=== PATIENT | male | born 1945 | race Caucasian/White ===

== ENCOUNTER 2016-08-23 10:21 | Inpatient (IN) ==
--- NOTE | 2016-08-23 10:48 | Emergency Department Note ---
Disposition Clinical Impression: Weakness of right lower extremity Disposition: Admitted As Inpatient Condition: Fair Time of Disposition: 13:39 Neuro HPI - General Chief Complaint: ED Weakness Stated Complaint: weakness Time Seen by Provider: 08/23/16 10:34 Source: patient, EMS Limitations: no limitations Nursing Notes Reviewed: Yes Vital Signs Reviewed: Yes - History of Present Illness HPI Narrative: 71-year-old male presents to the emergency department from the [place] urgent care for evaluation of right lower extremity weakness. Patient states yesterday at approximately 16:30 the patient was rising from a seated position when he almost fell secondary to weakness of the right lower extremity. Patient states he has no back pain or prior history of CVA. Patient states that it felt like his right lower extremity was weak and "asleep". Patient states that his symptoms did not get better and today he went to the [place] for evaluation. He denies any saddle anesthesia. He denies any bowel or bladder incontinence. He denies any chest pain or shortness of breath. He denies any nausea or vomiting. Patient states that he does have a history of prior back surgery but has no metal in his spine. Patient denies any pain in lower extremity and has no radicular symptoms. Exam is remarkable for an elderly male resting in bed in no acute distress. He is awake, alert and oriented. Cranial nerves II through XII are grossly intact. Patient has equal strength and sensation in his upper extremities. In the lower extremities strength is decreased on the right however , he is able to hold the leg off the bed but it does drift to the bed but after 5 seconds. He has no sensory deficit noted. There is no signs of trauma. Exam is otherwise nonfocal. Reviewed patient's CT results from the [place] which shows no acute intracranial abnormality. Lab work is also unremarkable. EKG and MRI of the spine ordered. Onset of Symptoms Date: 08/22/16 Onset of Symptoms Time: 16:30 Location: right leg History of same: No Severity: moderate Quality: weakness Symptoms Improving: No Improves with: none Worsens with: none Context: sudden onset On Anticoagulants: Yes Associated symptoms: Reports: denies other symptoms Treatments Prior to Arrival: none - Related Data Home Medications: Home Medications Medication Instructions Recorded Confirmed GlipiZIDE [Glipizide] 10 mg PO BIDWM 03/14/16 08/23/16 Metformin HCl [Glucophage] 1,000 mg PO BID 03/14/16 08/23/16 Rivaroxaban [Xarelto] 10 mg PO DAILY 03/14/16 08/23/16 Diltiazem HCl [Cardizem] 240 mg PO DAILY 06/17/16 08/23/16 Previous Rx's Medication Instructions Recorded Metoprolol XL (24 HR) Succ [Toprol 25 mg PO DAILY #30 tab.er.24h 03/18/16 Xl] Allergies/Adverse Reactions: Allergies Allergy/AdvReac Type Severity Reaction Status Date / Time No Known Allergies Allergy Verified 03/14/16 18:19 All systems ED: reviewed and negative except as stated. Constitutional: Denies: fever Cardiovascular: Denies: chest pain, palpitations Respiratory: Denies: cough, dyspnea Gastrointestinal: Reports: diarrhea. Denies: abdominal pain, nausea, vomiting Genitourinary: Denies: dysuria Musculoskeletal: Denies: back pain, neck pain Neurological: Reports: weakness Past Medical History - Past Medical History Medical history: Reports: diabetes, hyperlipidemia Psychiatric history: Reports: no psych history - Social History Smoking Status: Former smoker Smokeless Tobacco Status: No Alcohol use: Reports: none Drug use: Reports: none Physical Exam - General Limitations: no limitations General appearance: alert - Head Head exam: atraumatic, normocephalic, normal inspection - Eye Eye exam: Present: normal appearance, PERRL, EOMI - Chest Chest inspection: Present: normal inspection, symmetric chest wall rise - Respiratory Respiratory exam: Present: normal lung sounds bilaterally - Cardiovascular Cardiovascular exam: Present: regular rate, normal rhythm, normal heart sounds - Abdominal Exam Abdominal exam: Present: soft, Non-Tender. Absent: tenderness, distention, guarding, rebound, rigidity - Back Exam Back exam: Present: normal inspection. Absent: tenderness - Neurological Exam Neurological exam: Present: alert, oriented X3, CN II-XII intact, motor sensory deficit (Noticeable weakness to the right lower extremity when compared to left lower extremity. 3 out of 5 strength compared to 5 out of 5 strength) - Skin Skin exam: Present: warm, dry, intact, normal color Course - Reevaluation(s) Reevaluation #1: Discussed findings with patient. MRI shows chronic degenerative changes but no signs of acute herniation or mass effect that would cause the patient's symptoms. Plan will be to admit patient to the hospital for further evaluation of his right lower extremity weakness with concerns for CVA. Time: 13:42 Vital Signs Temperature 98.7 F 08/23/16 10:25 Pulse Rate 68 08/23/16 10:25 Respiratory Rate 16 08/23/16 10:25 Blood Pressure 139/105 08/23/16 10:25 O2 Sat by Pulse Oximetry 99 08/23/16 10:25 Temperature 0 F L 08/23/16 14:31 Pulse Rate 87 08/23/16 11:08 Respiratory Rate 0 08/23/16 14:31 Blood Pressure 0/0 08/23/16 14:31 O2 Sat by Pulse Oximetry 98 08/23/16 11:08 Oxygen Delivery Oxygen Delivery Room Air Neuro Symptoms/Deficit - MDM Narrative Medical decision making narrative: I examined this patient and my medical decision-making was reviewed with the RAIL OPERATOR/PA/Advanced Practice Nurse/Resident Physician. I agree with the documented findings, disposition and treatment plan as described except to the extent set forth below. Patient was seen at the [facility] and transferred here. On arrival he was seen by Dr. Olson and myself, please see his evaluation, I agree with his management and treatment plan. I supervised care patient state. Patient has had 24 hours or right lower extremity weakness. He says sudden onset. No back pain. No change in bowel or bladder habits. Had knee surgery in the side of years ago but nothing acute. Also back surgery years ago but nothing acute. He does have weakness with hip flexors with lifting the leg when he ambulates, he does have foot drop on that side. No other neuro deficits. And again an MRI of his spine and reassessed. He is in agreement with plan. Lumbar Spine MRI 08/23/16 10:43 IMPRESSION: Moderate diffuse degenerative disc disease with associated mild congenital spinal canal stenosis. Small central disc protrusion at L3-L4. Mild central canal stenosis at L2-L3 and L3-L4. Severe bilateral foraminal stenosis at L5-S1. D/ : / 08/23/2016 13:02:34 Ulises Handley MD / catarino Interpreting Provider: Ulises Handley MD 1408 hrs.: We do not see much on his MRI that would cause the symptoms so the question could be could this still be a stroke type pattern. [facility] and bring him into the hospital this time he will need further workup. Possible substance agreement with this plan. Patient's in agreement also. Patient's critical care time x-ray separately billable procedures is 45 minutes. - Medical Records Medical records reviewed: Yes I reviewed the patient's medical records. - Lab Data Lab results reviewed: Yes I reviewed the patient's lab results. - Radiology Data Radiology results reviewed: Yes I reviewed the patient's radiology results. - EKG Data EKG attestation: Yes I reviewed and interpreted this EKG. Rate: normal Rhythm: A. flutter Interpretation: no acute changes NIH Stroke Scale - Level of Consciousness LOC: Alert - LOC Questions LOC Questions: Answers both correctly - LOC Commands LOC Commands: Performs both correctly - Best Gaze Best Gaze: Normal - Visual Visual: No visual loss - Facial Palsy Facial Palsy: Normal - Motor Arms Motor Arm-Left: No drift for 10 seconds Motor Arm-Right: No drift for 10 seconds - Motor Legs Motor Leg-Left: No drift for 5 seconds Motor Leg-Right: Drift, does NOT hit bed - Limb Ataxia Limb Ataxia: Normal, No Ataxia - Sensory Sensory: Normal - Best Language Best Language: No aphasia - Dysarthria Dysarthria: Normal - Extinction and Inattention Extinction and Inattention: Normal - NIHSS Total Score NIHSS Total Score: 1
[2016-08-23] MEDS ORDERED: *HR* HYDROcodone/Acet 5/325 mg TABLET PO PRN (17:10)
[2016-08-23] MEDS ORDERED: MOM Conc 10 ML UD.LIQ PO PRN (17:10)
[2016-08-23] MEDS ORDERED: Ondansetron 4 MG/2 ML VIAL IVP PRN (17:10)
[2016-08-23] MEDS ORDERED: Acetaminophen 325 MG TABLET PO PRN (17:10)
[2016-08-23] MEDS ORDERED: Naloxone 0.4 MG/ML INJ IVP PRN (17:10)
[2016-08-23] MEDS ORDERED: *HR* Dextrose 50 % in Water (Syg) 50 ML SYRINGE IVP PRN (17:13)
[2016-08-23] MEDS ORDERED: Dextrose Gel 15 GM PO PRN ×2 (17:13)
[2016-08-23] MEDS ORDERED: D5% in Water 1,000 ML IV PRN (17:13)
[2016-08-23] MEDS ORDERED: *HR* Metoprolol 5 MG/5 ML VIAL IVP ONE (17:30)
--- NOTE | 2016-08-23 18:15 | Internal Med History&Physical ---
<Sury Lam - Last Filed: 08/24/16 07:32> Date of Encounter: 08/24/16 Time of Encounter: 16:55 Assessment and Plan (1) CVA (cerebral vascular accident) Current visit: Yes Status: Acute Pt has had improvement since initial assessment. Pt has been up to amb and appears to be steady, but maintains that his leg feels "funny". Infarct most likely from embolus due to a-fib/flutter and is located in the posterior L frontal lobe near the L MCA. MRI also shows older infarct that pt apparently had no symptoms and was unaware. Pt had bedside swallow at [facility] and has eaten already, so speech and swallow have been cancelled. Asa 81mg po daily Continue Xarelto and other home medications Lipitor 40mg po qhs ECHO Consult Neurology Qualifiers: CVA mechanism: embolism Precerebral and cerebral artery: middle cerebral artery Laterality of affected vessel: left Qualified Code(s): I63.412 - Cerebral infarction due to embolism of left middle cerebral artery (2) Diabetes mellitus Current visit: No Status: Chronic Glucose 174mg/dL per Chemistry. Last A1c in February 8.5%. Nutrition and sliding scale insulin Diabetic Diet A1c Monitor labs Qualifiers: Diabetes mellitus type: type 2 Diabetes mellitus complication status: with unspecified complications Diabetes mellitus chcf insulin use: without chcf use Qualified Code(s): E11.8 - Type 2 diabetes mellitus with unspecified complications (3) Atrial flutter Current visit: Yes Status: Acute Pt has previous history of a-fib and a-fib RVR. Currently pt is in a-flutter. Pt denies cp, sob, or palpitations. Rate 130s on bedside monitor Continue Xarelto 10mg po daily Echo in a.m. Metoprolol 5mg IVP x 1 for rate control Continue Diltiazem po Qualifiers: Atrial flutter type: unspecified Qualified Code(s): I48.92 - Unspecified atrial flutter Internal Medicine - H&P: HPI Chief complaint: RLE weakness Admitted From: Home Plans for Post Hospital Care: Transfer Inp Rehab Fac History of present illness: Mr. Shi is a 71 year old male with history of a-fib and DM who presents today for 1 day history of RLE weakness. Pt states that yesterday at approx 1630 he attempted to stand and felt like his leg was weak. He was not better today, so he went to the [place] for eval and was then sent to our ED for evaluation. Pt states that he missed one dose of Xarelto 2 days ago. Denies any other symptoms other than RLE weakness. Pt does have very slight droop at corner of R mouth and not able to hold R leg against gravity. Pt has already eaten today and had a bedside swallow at the [place] prior to coming here. Dr. Lara and I have assessed this pt and have ordered him a regular diet tonight. Pt has not had trouble with his speech since onset of symptoms and speech has been clear. Past Med Surg Social Fam HX - Past Medical History Medical history: diabetes, hyperlipidemia Psychiatric history: no psych history - Social History Smoking Status: Former smoker Smokeless Tobacco Status: No Alcohol use: none Drug use: none - Family History Mother Living Status: Brother Living Status: Father Living Status: Internal Medicine - H&P: Meds GlipiZIDE [Glipizide] 10 mg PO BIDWM 03/14/16 [History] Metformin HCl [Glucophage] 1,000 mg PO BID 03/14/16 [History] Rivaroxaban [Xarelto] 10 mg PO DAILY 03/14/16 [History] Metoprolol XL (24 HR) Succ [Toprol Xl] 25 mg PO DAILY #30 tab.er.24h 03/18/16 [ Rx] Diltiazem HCl [Cardizem] 240 mg PO DAILY 06/17/16 [History] Allergies No Known Allergies Allergy (Verified 03/14/16 18:19) All Systems PM: A 10-system review of systems was performed and is negative for pertinent findings except as documented above in the HPI. - Constitutional Constitutional: weakness, no chills, no fever(s), no falls - EENT Eyes: no loss of vision, no other visual disturbances - Cardiovascular Cardiovascular ROS IM: no chest pain, no dyspnea, no dyspnea on exertion, no syncope - Respiratory Respiratory: no cough, no wheezing, no chest congestion - Gastrointestinal Gastrointestinal: no diarrhea, no nausea, no vomiting - Musculoskeletal Musculoskeletal ROS IM: muscle weakness, numbness - Neurological Neurological ROS: abnormal gait, numbness, weakness, no paresthesias - Constitutional Vitals: Temp Pulse Resp BP Pulse Ox 97.8 F 126 16 120/88 97 08/23/16 15:00 08/23/16 15:00 08/23/16 15:00 08/23/16 15:00 08/23/16 15:34 General appearance: Present: cooperative, A&O X 3, pleasant, no acute distress - Head Head exam: Present: normocephalic - Eye Eye exam: Present: PERRL, conjuntiva pink. Absent: EOMI, nystagmus - ENT ENT exam: Present: mucous membranes moist - Neck Neck exam general surgery: Present: full ROM. Absent: lymphadenopathy, tenderness - Respiratory Respiratory exam: Present: CTAB. Absent: accessory muscle use, chest wall tenderness, decreased breath sounds, rales, rhonchi, wheezes - Cardiovascular Cardiovascular exam: Present: RRR, +S1, +S2. Absent: distant heart sounds - GI/Abdominal GI/Abdominal exam: Present: distended, normal bowel sounds, soft. Absent: tenderness - Expanded Upper Extremities Exam General: Present: normal inspection Vascular exam: Present: pedal pulse right, pedal pulse left, radial pulse right , radial pulse left - Neurological Exam Neurological exam: Present: CN II-XII intact, oriented X3, facial droop. Absent : pronater drift, speech deficit - Expanded Neurological Exam Neurological exam expanded: Present: protecting the airway. Absent: ataxia, expressive aphasia, inattentive Cranial Nerves: tongue deviation PM: Normal Cerebellar function: finger to nose: Normal, heel to banuelos: Abnormal Right Neuro motor strength exam: LUE: 5, RUE: 5, LLE: 5, RLE: 5 (Pt has no deficit in strength. Pt cannot lift leg from bed without it dropping in less than 5 seconds ) Internal Med - H&P Results - Labs CBC & Chem 7: 08/24/16 04:33 08/24/16 04:33 - Impressions ITS Impressions Brain MRI 08/23/16 14:20 IMPRESSION: Small acute infarction in the posterior left frontal lobe, in the left MCA territory. Small old infarction in the right cerebellar hemisphere. Mild parenchymal volume loss. Minimal chronic microvascular disease. No acute abnormality of the MRA of the head and MRA of the neck. The results were called by Dr. Marshall Card MD to nurse Ms. Muniz on 08/23/2016 at 16:22. D/ / Marshall Card MD / Marshall Card MD Interpreting Provider: Marshall Card MD Head MRA 08/23/16 14:20 IMPRESSION: Small acute infarction in the posterior left frontal lobe, in the left MCA territory. Small old infarction in the right cerebellar hemisphere. Mild parenchymal volume loss. Minimal chronic microvascular disease. No acute abnormality of the MRA of the head and MRA of the neck. The results were called by Dr. Marshall Card MD to nurse Ms. Muniz on 08/23/2016 at 16:22. D/ / Marshall Card MD / Marshall Card MD Interpreting Provider: Marshall Card MD Neck MRA 08/23/16 14:20 IMPRESSION: Small acute infarction in the posterior left frontal lobe, in the left MCA territory. Small old infarction in the right cerebellar hemisphere. Mild parenchymal volume loss. Minimal chronic microvascular disease. No acute abnormality of the MRA of the head and MRA of the neck. The results were called by Dr. Marshall Card MD to nurse Ms. Muniz on 08/23/2016 at 16:22. D/ / Marshall Card MD / Marshall Card MD Interpreting Provider: Marshall Card MD <Karlos Guerrero - Last Filed: 08/24/16 07:50> Date of Encounter: 08/24/16 Internal Medicine - H&P: HPI History of present illness: Mr. Shi is a 71 year old male All Systems PM: A 10-system review of systems was performed and is negative for pertinent findings except as documented above in the HPI. - Constitutional Vitals: Temp Pulse Resp BP Pulse Ox 97.8 F 137 14 121/83 97 08/24/16 06:35 08/24/16 06:35 08/24/16 06:35 08/24/16 06:35 08/24/16 06:35 Internal Med - H&P Results - Labs CBC & Chem 7: 08/24/16 04:33 08/24/16 04:33 Labs: Short CBC 08/23/16 08/24/16 Range/Units 18:27 04:33 WBC 9.1 8.5 (4.3-11.1) K/mcL Hgb 15.9 15.1 (12.9-16.9) g/dL Hct 46.6 45.8 (37.5-50.1) % Plt Count 190 187 (140-400) K/mcL Neutrophils # 4.7 4.5 (1.6-8.9) K/mcL BMP 08/23/16 08/24/16 18:27 04:33 Sodium 141 140 Potassium 4.3 4.2 Chloride 106 107 Carbon Dioxide 22 21 BUN 14 15 Creatinine 0.82 0.89 Glucose 118 H 156 H Calcium 9.7 9.2 - Impressions ITS Impressions Brain MRI 08/23/16 14:20 IMPRESSION: Small acute infarction in the posterior left frontal lobe, in the left MCA territory. Small old infarction in the right cerebellar hemisphere. Mild parenchymal volume loss. Minimal chronic microvascular disease. No acute abnormality of the MRA of the head and MRA of the neck. The results were called by Dr. Marshall Card MD to nurse Ms. Muniz on 08/23/2016 at 16:22. D/ / Marshall Card MD / Marshall Card MD Interpreting Provider: Marshall Card MD Head MRA 08/23/16 14:20 IMPRESSION: Small acute infarction in the posterior left frontal lobe, in the left MCA territory. Small old infarction in the right cerebellar hemisphere. Mild parenchymal volume loss. Minimal chronic microvascular disease. No acute abnormality of the MRA of the head and MRA of the neck. The results were called by Dr. Marshall Card MD to nurse Ms. Muniz on 08/23/2016 at 16:22. D/ / Marshall Card MD / Marshall Card MD Interpreting Provider: Marshall Card MD Neck MRA 08/23/16 14:20 IMPRESSION: Small acute infarction in the posterior left frontal lobe, in the left MCA territory. Small old infarction in the right cerebellar hemisphere. Mild parenchymal volume loss. Minimal chronic microvascular disease. No acute abnormality of the MRA of the head and MRA of the neck. The results were called by Dr. Marshall Card MD to nurse Ms. Muniz on 08/23/2016 at 16:22. D/ / Marshall Card MD / Marshall Card MD Interpreting Provider: Marshall Card MD - Attending Attestation I discussed the care of this patient with the Advanced Practice Provider. I agree with the documented findings, disposition and treatment plan as described. Please see event note documented by Dr Lara on 08/23/2016.
--- NOTE | 2016-08-23 18:22 | Event Note ---
Date of Encounter: 08/23/16 Time of Encounter: 18:10 I have seen this patient and examined him. Plan of care discussed with patient, family members and [employer] Genaro 71 Y/O M with Type II DM, and Atrial flutter/fibrillation on Xarelto Patient presented with >24 hours of RLE weakness, numbness and left facial droop He reports having missed "a couple" of his Xarelto doses At time of review, he had no complains Physical Exam: VS: HR 125-133. BP WNL Gen: Pleasant, not in any form of distress Neuro exam: Left subtle facial paralysis, no speech deficits, Gait is normal but slow, no ataxia on standing, no hemineglect. Patient's strength in upper extremities is 5/5, his RLE is about 4/5. No sensation deficits HEENT: Moist oral mucosa Chest: CTAB heart: S1, S2, tachycardia, irregular Abdomen: Flat, soft, not tender Extremities: No pedal edema Labs and Imaging reviewed No labs obtained Bran MRI/MRA< Neck MRA: No foacl stenosis. Artherosclerotic disease at the left bifurcation without flow-limiting stenosis. Small chronic cerebellar infarct, small acute left MCA territory infarct Lumbar MRI: Moderate DJD, mild congenital spinal canal stenosis Assessment/Plan 1. Acute Ischemic Left MCA CVA: -Patient already on xarelto, continue same -will obtain PT/PTT, CBC, Comprehensive panel, Lipid panel and A1C -Start ASA 325mg daily -Lipitor 40mg qhs -Obtain ECHO, r/o thrombus -PT/OT review a.m -Patient tolerated his lunch, he may be fed -Fall precautions -High risk due to possible hemorrhagic conversion on dual antiplatelet therapy -Consult neurology 2. Atrial flutter by EKG, with RVR -Give IV lopressor, monitor BP -Restart oral home meds -Continue continuous cardiac monitoring 3. DM -Check A1C -Sliding scale insulin -FS ACHS -Diabetic diet Rest of details as documented in [employer] [facility]'s H/P
[2016-08-23 18:37] LABS: Basophils # 0.1 K/mcL (0.0-0.2); Basophils % 0.6 %; Eosinophils # 0.2 K/mcL (0.0-0.6); Eosinophils % 1.9 %; Hematocrit 46.6 % (37.5-50.1); Hemoglobin 15.9 g/dL (12.9-16.9); Immature Granulocytes % 0.4 % (0-4); Lymphocytes # 3.4 K/mcL (0.6-4.6); Lymphocytes % 37.4 %; Mean Corpuscular HGB Conc 34.1 g/dL (31.6-35.5); Mean Corpuscular Hemoglobin 31.2 pg (28.0-33.3); Mean Corpuscular Volume 91.4 fL (83.0-100.0); Monocytes # 0.7 K/mcL (0.0-1.3); Monocytes % 7.5 %; Neutrophils # 4.7 K/mcL (1.6-8.9); Platelet Count 190 K/mcL (140-400); Segmented Neutrophils % 52.2 %
[2016-08-23 18:43] LABS: INR 1.7; Prothrombin Time 18.4 Seconds (9.4-12.1)
[2016-08-23 18:51] LABS: BUN/Creatinine Ratio 17 (6-26); Blood Urea Nitrogen 14 mg/dL (8-26); Calcium 9.7 mg/dL (8.6-10.8); Carbon Dioxide 22 mEq/L (19-29); Chloride 106 mEq/L (98-109); Glucose 118 mg/dL (70-99); Osmolality,Calculated 294 (280-300); Potassium 4.3 mEq/L (3.5-4.5); Sodium 141 mEq/L (136-145); eGFR For African Americans > 60 (> 60); eGFR For Non-African Americans > 60 (> 60)
[2016-08-23 18:52] LABS: Chol/HDL Ratio 6.2 (0-4.9)
[2016-08-23] MEDS: Insulin LISPRO 300 UNITS/3 ML VIAL SQ SCH (21:19)
[2016-08-23] MEDS ORDERED: *HR* Metoprolol 5 MG/5 ML VIAL IVP PRN (23:16)
[2016-08-24] MEDS ORDERED: 0.9 % Sodium Chloride 1,000 ML ONE (01:30)
[2016-08-24] MEDS ORDERED: 0.9 % Sodium Chloride 300 ML IVC ONE (01:32)
[2016-08-24] MEDS: *HR* Digoxin 0.5 MG/2 ML AMPUL IVP SCH ×3 (04:22→18:14)
[2016-08-24 05:18] LABS: Basophils # 0.1 K/mcL (0.0-0.2); Basophils % 0.7 %; Eosinophils # 0.2 K/mcL (0.0-0.6); Hematocrit 45.8 % (37.5-50.1); Hemoglobin 15.1 g/dL (12.9-16.9); Immature Granulocytes % 0.7 % (0-4); Lymphocytes # 3.1 K/mcL (0.6-4.6); Lymphocytes % 36.1 %; Mean Corpuscular Hemoglobin 30.1 pg (28.0-33.3); Mean Corpuscular Volume 91.4 fL (83.0-100.0); Mean Platelet Volume 11.4 fL (9.4-12.4); Monocytes # 0.7 K/mcL (0.0-1.3); Neutrophils # 4.5 K/mcL (1.6-8.9); Platelet Count 187 K/mcL (140-400); Red Blood Count 5.01 M/mcL (4.19-5.50); Red Cell Distribution Width 13.1 % (11.5-14.5); Segmented Neutrophils % 52.5 %
[2016-08-24 05:28] LABS: BUN/Creatinine Ratio 17 (6-26); Blood Urea Nitrogen 15 mg/dL (8-26); Calcium 9.2 mg/dL (8.6-10.8); Carbon Dioxide 21 mEq/L (19-29); Chloride 107 mEq/L (98-109); Glucose 156 mg/dL (70-99); Osmolality,Calculated 294 (280-300); Potassium 4.2 mEq/L (3.5-4.5); Sodium 140 mEq/L (136-145); eGFR For African Americans > 60 (> 60); eGFR For Non-African Americans > 60 (> 60)
[2016-08-24] MEDS ORDERED: *HR* Rivaroxaban 10 MG TABLET PO SCH (06:00)
--- NOTE | 2016-08-24 08:04 | Event Note ---
Date of Encounter: 08/24/16 Time of Encounter: 01:30 Pt remained tachycardic / A flutter with RVR (HR ~ 130), after he received IV metoprolol last night. Given diltiazem IV 5 mg and 10 mg - no response. IV fluid bolus did not improve heart rate. Discussed with fire officer on-call - who recommends Digoxin loadin.25 mg Q6H 3 doses. Cardiology consult. Pt is awaiting echo.
[2016-08-24] MEDS: Diltiazem CD (24hr) 240 MG CAPSULE PO SCH (08:49)
[2016-08-24] MEDS: Aspirin 325 MG TABLET PO SCH (08:49)
[2016-08-24] MEDS: Insulin LISPRO 300 UNITS/3 ML VIAL SQ SCH ×7 (08:52→20:11)
[2016-08-24] MEDS ORDERED: Metoprolol XL (24 HR) Succ 25 MG TAB.ER.24H PO SCH (09:00)
--- NOTE | 2016-08-24 11:22 | Cardiology Consult Note ---
Date of Encounter: 08/24/16 Time of Encounter: 11:20 Assessment and Plan (1) Atrial fibrillation with RVR Current Visit: No Status: Acute Atrial flutter with RVR. Heart rate 130s on admission. Patient was given IV Cardizem bolus without response. He was recommended to be started on digoxin IV loading. Heart rate 90s to 113 during my exam. Increase beta bushra as tolerated. Recommended Xarelto doses 20 mg daily. Patient was on a low dose xarelto started at [facility]. Recently instructed to increase to 20 mg daily. reports patient had 1-2 doses of the 20 mg prior to admission. TTE pending. (2) CVA (cerebral vascular accident) Current Visit: Yes Status: Acute Acute infarct in the posterior L frontal lobe near the L MCA. Recommend Xarelto at 20 mg daily. Nephrology consulted. Qualifiers: CVA mechanism: embolism Precerebral and cerebral artery: middle cerebral artery Laterality of affected vessel: left Qualified Code(s): I63.412 - Cerebral infarction due to embolism of left middle cerebral artery Discussion w patient/family: The assessment and plan as outlined above was discussed with the patient and/or family members who expressed understanding and agreement. All questions were answered. Thank you for involving us in the care of your patient. Please call with any questions. History of Present Illness Consult date: 08/24/16 Requesting physician: Melecio Pederson Consult reason: Afib with RVR, acute CVA History of present illness: Mr. Shi is a 71 year old male with a history of atrial flutter on Xarelto, diabetes, hyperlipidemia, and presumed TY. He presented after loosing function of his right leg and falling at home. He was found to have a small acute left frontal lobe infarct on MRI. He is also found to be in atrial flutter with RVR. Patient was on Xarelto 10 mg daily at home. He was instructed recently to increase to a 20 mg a day dose and just started taking the increased dose. He admits to occasional palpitations. Denies chest pain or shortness of breath. His right lower extremity weakness has improved. Neurology is consult for acute CVA. For his afib he was given 15 mg IV Cardizem without a response in his heart rate. He was then started on digoxin IV loading. Past Med Surg Social Fam HX - Past Medical History Medical history: diabetes, hyperlipidemia Psychiatric history: no psych history - Past Surgical History Surgical History: appendectomy - Social History Smoking Status: Former smoker Smokeless Tobacco Status: No Alcohol use: none Drug use: none - Family History Mother Living Status: Brother Living Status: Father Living Status: Medications and Allergies GlipiZIDE [Glipizide] 10 mg PO BIDWM 03/14/16 [History] Metformin HCl [Glucophage] 1,000 mg PO BID 03/14/16 [History] Rivaroxaban [Xarelto] 10 mg PO DAILY 03/14/16 [History] Metoprolol XL (24 HR) Succ [Toprol Xl] 25 mg PO DAILY #30 tab.er.24h 03/18/16 [ Rx] Diltiazem HCl [Cardizem] 240 mg PO DAILY 06/17/16 [History] Allergies No Known Allergies Allergy (Verified 03/14/16 18:19) All Systems Review: A 10-system review of systems was performed and is negative for pertinent findings except as documented above in the HPI. Physical Examination Vital Signs, Last 4 Hours Temp Pulse Resp BP Pulse Ox 08/24/16 10:37 98.3 F 139 15 108/74 96 General: Conversant, No Apparent Distress HEENT: Atraumatic, Normocephaly, Mucus Membranes Moist Neck: No JVD, Normal carotid pulses Cardiac: Other (Irregularly irregular) Lungs: Other (Respirations are easy, faint expiratory wheezes throughout.) Neuro: Alert and responsive, No focal deficits noted Abdomen: Soft, Non-Tender Skin: No rashes noted on visualized skin Musculoskeletal: No Chest Wall Tenderness Extremities: No Clubbing, No Cyanosis, No Edema, Normal Pulses Results 08/24/16 04:33 08/24/16 04:33 Lab Results 08/23/16 08/23/16 08/23/16 18:27 18:27 18:27 WBC 9.1 Hgb 15.9 Hct 46.6 Plt Count 190 INR 1.7 Sodium 141 Potassium 4.3 Chloride 106 Carbon Dioxide 22 BUN 14 Creatinine 0.82 Glucose 118 H Calcium 9.7 08/24/16 08/24/16 04:33 04:33 WBC 8.5 Hgb 15.1 Hct 45.8 Plt Count 187 INR Sodium 140 Potassium 4.2 Chloride 107 Carbon Dioxide 21 BUN 15 Creatinine 0.89 Glucose 156 H Calcium 9.2 - Imaging and Cardiology Echo: pending, report reviewed (Previous echo completed at the [facility] in February 2016 showed an EF of 45%.) Cardiac cath: report reviewed ([facility] on 06/17/2016 showed minimal CAD) - EKG Interpretation EKG results cardiology: personally reviewed (Atrial flutter heart rate 131) Consult Discharge Plan - Plan [facility]errals: [facility] [Primary Care Provider] -
--- NOTE | 2016-08-24 11:23 | ECHO - Doppler Report ---
Echo with Saline Contrast Name: Dorothea Shi Date of Study: 08/24/2016 Date: 1945 Ht: 68.0 in Medical Record#: [id number] Age: 71 Wt: 210.0 lb Gender: Male BSA: 2.09 Order #: [id number] Location: [facility] Room #: 2NE16 Reading Physician: Sudarshan Styles MD, [facility] Jelly Maker: Laury Arora Ordering Physician: Rusty Lara MD Primary Physician: [facility] Indications: Atrial flutter with CVA Impressions: Atrial flutter vs atrial tachycardia with RVR. Heart rate was in the 130's during this study. Low-normal to mildly decreased LV systolic dysfunction, LVEF 45-50%. LV function was suboptimally assessed due to rapid heart rate during this study. Indeterminate diastolic function. Normal right ventricular size and function. Moderately dilated left atrium. Moderately dilated right atrium. Mild mitral regurgitation. No evidence of pulmonary hypertension. Left Ventricular Wall Motion: Rest Echo Findings All wall segments showed normal motion. Findings: Study Quality * Suboptimal echo windows. ECG Findings * Atrial flutter vs atrial tachycardia with RVR. Heart rate was in the 130's during this study. Left Ventricle * Low-normal to mildly decreased LV systolic dysfunction, LVEF 45-50%. LV function was suboptimally assessed due to rapid heart rate during this study. * Normal LV chamber size and wall thickness. * Indeterminate diastolic function. Right Ventricle * Normal right ventricular size and function. Left Atrium * Moderately dilated left atrium. Right Atrium * Moderately dilated right atrium. Aorta * Normally sized aortic root. Pericardium * There is no pericardial effusion present. IVC * The IVC is not well evaluated. Aortic Valve * Trileaflet aortic valve. * No aortic stenosis. * Trace aortic regurgitation. Mitral Valve * Mild mitral annular calcification * No mitral stenosis. * Mild mitral regurgitation. Tricuspid Valve * Normal tricuspid valve structure. * No tricuspid stenosis. * Trace tricuspid regurgitation. * No evidence of pulmonary hypertension. Pulmonic Valve * Pulmonic valve not well visualized. * No pulmonic stenosis. * Trace pulmonic regurgitation. History Diabetes Hypercholesteremia Years 20 Packs 2 Family History of CAD Contrast: Agitated saline 20 ml. Measurements: BP: 121/ 83 2D Normal Values RVIDd: 3.00 cm IVSd: 1.00 cm 0.6 - 1.0 cm LVIDd: 4.20 cm 3.7 - 5.6 cm LVPWd: 1.00 cm 0.6 - 1.1 cm LVIDs: 3.10 cm 1.5 - 3.6 cm AO: 3.50 cm < 4.0 cm %FS: 26.20 cm >25 % LA volume: 86 Tricuspid Valve TV Regurg Peak Grad: 21.00mmHg TV Regurg Peak Watson: 2.27m/sec Updated by Sudarshan Styles MD, [facility] on 08/24/2016 11:17:52 AM electronically signed on 08/24/2016 11:18:38 AM with status of Final Wall Motion Ojeda: 1=Normal, 2=Hypokinesis, 3=Akinesis, 4=Dyskinesis, 5=Aneurysmal, 6=Hyperkinetic, X=Not Visualized (Blank)=Missing
[2016-08-24] MEDS ORDERED: *HR* Rivaroxaban 10 MG TABLET PO ONE (12:07)
[2016-08-24] MEDS ORDERED: Metoprolol XL (24 HR) Succ 25 MG TAB.ER.24H PO ONE (12:10)
--- NOTE | 2016-08-24 15:59 | Internal Med Progress Note ---
<Tomi Clemons - Last Filed: 08/24/16 15:56> Date of Encounter: 08/24/16 Time of Encounter: 11:00 - Assessment and plan (1) CVA (cerebral vascular accident) Current Visit: Yes Status: Acute Assessment and plan: Stable condition. Mr. Shi suffered acute infarcts in the posterior left frontal lobe and the left MCA territory. He also demonstrates small old infarcts in the right cerebral hemisphere. MRI report also demonstrates mild parenchymal volume loss and mild chronic microvascular disease. MRA of the head and neck did not demonstrate any acute abnormalities. Mr. Shi was on Xarelto to 10 mg by mouth daily at home, he was not on a statin. Echocardiogram performed 08/24/2016 demonstrates atrial flutter versus atrial tachycardia with RVR. Heart rate was in the 130s during the study. Low-normal to mild decreased left ventricular dysfunction with LVEF 45-50%, left ventricle function was suboptimal assessed due to rapid heart rate in the study. Indeterminate diastolic dysfunction. Normal right ventricular size and function. Moderate dilated left atrium. Moderately dilated right atrium. Mild mitral regurgitation. No evidence of pulmonary hypertension Plan: - Neurology consult, plans to see patient this evening. - Continue Xarelto at 20 mg by mouth daily. - Aspirin 325 mg daily - Atorvastatin 40 mg by mouth at bedtime. - Physical therapy and occupational therapy consults placed. Awaiting evaluation recommendations. Qualifiers: CVA mechanism: embolism Precerebral and cerebral artery: middle cerebral artery Laterality of affected vessel: left Qualified Code(s): I63.412 - Cerebral infarction due to embolism of left middle cerebral artery (2) Atrial flutter Current Visit: Yes Status: Acute Assessment and plan: Mr. Shi presented with atrial flutter with a heart rate roughly around 130. Home medications include metoprolol 25 mg by mouth daily and Cardizem 240 mg by mouth daily. Cardiology was consult physicians involved in his care, recommendations reviewed and implemented. Plan: - IV digoxin 0.25 mg every 6 hours loading currently. Patient will require a digoxin level after load is complete. - Continue Toprol-XL 50 mg by mouth daily - Continue Cardizem CD 240 mg by mouth daily - Cardizem 10 mg IV push when necessary available - Continue cardiac monitoring. - If Mr. Shi does not respond well to current therapy he may require cardioversion and will require a KATIE prior. Qualifiers: Atrial flutter type: unspecified Qualified Code(s): I48.92 - Unspecified atrial flutter (3) Uncontrolled type II diabetes mellitus Current Visit: No Status: Acute Assessment and plan: Mr. Shi is a type II diabetic who is on metformin and glipizide at home. Hemoglobin A1c was 8.0. Glucoses are monitored during inpatient stay. Plan: - Continue ACHS glucose checks - Continue inpatient sliding scale. Qualifiers: Qualified Code(s): E11.65 - Type 2 diabetes mellitus with hyperglycemia (4) Hyperlipidemia associated with type 2 diabetes mellitus Current Visit: Yes Status: Acute Assessment and plan: Triglycerides 269, cholesterol 259, LDL 163, VLDL 54, HDL 42 Plan: - Mr. Shi was started on atorvastatin 40 mg by mouth every evening - Monitor AST/ALT - Patient will need to follow-up with PCP outpatient. - Low fat low cholesterol diet is recommended. - Subjective Interval history: Mr. Shi 71-year-old male is seen and evaluated patient bedside this morning. He is alert awake interactive and in no acute distress. He denies any pain or discomfort and feels as if he could go for a walk. His is concerned as he has been more aggressive since his stroke. Mr. Shi denies any weakness but his is concerned because he is a little unsteady on his feet. He says he feels well enough to go home. - Constitutional Vitals: Temp Pulse Resp BP Pulse Ox 98.1 F 73 15 118/76 96 08/24/16 15:02 08/24/16 15:02 08/24/16 15:02 08/24/16 15:02 08/24/16 10:37 General appearance: Present: cooperative, A&O X 3, pleasant, no acute distress - Head Head exam: Present: atraumatic, normocephalic - Neck Neck exam general surgery: Present: supple, trachea midline. Absent: lymphadenopathy - Cardiovascular Cardiovascular exam: Present: irregular rhythm. Absent: diastolic murmur, gallop, rubs, systolic murmur - GI/Abdominal GI/Abdominal exam: Present: normal bowel sounds, soft, no peritoneal signs. Absent: distended, tenderness - Extremities Exam Extremities exam: Present: warm, radial pulses palpable and symetrical. Absent : calf tenderness, cyanotic, pedal edema - Neurological Exam Neurological exam: Present: alert, oriented X3, no focal deficits, strengths equal and symetr throughout. Absent: motor sensory deficit, pronater drift, facial droop, speech deficit - Psychiatric Psychiatric exam: Present: normal mood - Skin Skin exam: Present: dry, intact Internal Medicine: Result - Labs CBC & Chem 7: 08/24/16 04:33 08/24/16 04:33 Labs: Short CBC 08/23/16 08/24/16 Range/Units 18:27 04:33 WBC 9.1 8.5 (4.3-11.1) K/mcL Hgb 15.9 15.1 (12.9-16.9) g/dL Hct 46.6 45.8 (37.5-50.1) % Plt Count 190 187 (140-400) K/mcL Neutrophils # 4.7 4.5 (1.6-8.9) K/mcL BMP 08/23/16 08/24/16 18:27 04:33 Sodium 141 140 Potassium 4.3 4.2 Chloride 106 107 Carbon Dioxide 22 21 BUN 14 15 Creatinine 0.82 0.89 Glucose 118 H 156 H Calcium 9.7 9.2 - ABG Interpretation ABG results: PT/INR, D-dimer PT 18.4 Seconds (9.4-12.1) H 08/23/16 18:27 - Impressions Impressions Brain MRI 08/23/16 14:20 IMPRESSION: Small acute infarction in the posterior left frontal lobe, in the left MCA territory. Small old infarction in the right cerebellar hemisphere. Mild parenchymal volume loss. Minimal chronic microvascular disease. No acute abnormality of the MRA of the head and MRA of the neck. The results were called by Dr. Marshall Card MD to nurse Ms. Muniz on 08/23/2016 at 16:22. D/ / Marshall Card MD / Marshall Card MD Interpreting Provider: Marshall Card MD Head MRA 08/23/16 14:20 IMPRESSION: Small acute infarction in the posterior left frontal lobe, in the left MCA territory. Small old infarction in the right cerebellar hemisphere. Mild parenchymal volume loss. Minimal chronic microvascular disease. No acute abnormality of the MRA of the head and MRA of the neck. The results were called by Dr. Marshall Card MD to nurse Ms. Muniz on 08/23/2016 at 16:22. D/ / Marshall Card MD / Marshall Card MD Interpreting Provider: Marshall Card MD Neck MRA 08/23/16 14:20 IMPRESSION: Small acute infarction in the posterior left frontal lobe, in the left MCA territory. Small old infarction in the right cerebellar hemisphere. Mild parenchymal volume loss. Minimal chronic microvascular disease. No acute abnormality of the MRA of the head and MRA of the neck. The results were called by Dr. Marshall Card MD to nurse Ms. Muniz on 08/23/2016 at 16:22. D/ / Marshall Card MD / Marshall Card MD Interpreting Provider: Marshall Card MD Consult Discharge Plan - Plan Instructions: Metoprolol (By mouth), Diltiazem (By mouth), Digoxin (By mouth), Atorvastatin (By mouth), Rivaroxaban (By mouth), Atrial Flutter (DC), Atrial Fibrillation (DC), Diabetes Mellitus Type 2 in Adults (DC), Meal Planning with Diabetes Exchanges (GEN), Ischemic Stroke (GEN), Self Care Measures After a Stroke (GEN) Additional Instructions: recommend taking hons as prescribed. follow-up with physical therapy. Follow-up with your Primary care physician in the next 3-5 days. If you develop new facial slurred speech, trouble walking, weakness or any other concerning medical symptoms return to the emergency department for evaluation. Referrals: Sudarshan Styles MD [Partnered Physician] - (REFERRAL SENT TO [facility] , OFFICE WILL CALL YOU WITH APPOINTMENT TIME) [facility] - (FOLLOW UP WITH YOUR PRIMARY PHYSICAN ([facility] TEAM ) IN 3-5 DAYS AFTER DISCHARGED) Prescriptions: Atorvastatin [Lipitor] 40 mg PO HS #30 tablet Digoxin [Lanoxin] 0.125 mg PO DAILY #30 tablet Diltiazem CD (24hr) [Cardizem CD] 240 mg PO DAILY #30 cap.er.24h Metoprolol XL (24 HR) Succ [Toprol Xl] 50 mg PO DAILY #60 tab.er.24h Rivaroxaban [Xarelto] 20 mg PO DAILY #30 tablet <Jeremy Cuevas Loki - Last Filed: 08/25/16 13:28> Date of Encounter: 08/25/16 - Assessment and plan (1) CVA (cerebral vascular accident) Current Visit: Yes Status: Acute Qualifiers: CVA mechanism: thrombosis Precerebral and cerebral artery: anterior cerebral artery Laterality of affected vessel: left Qualified Code(s): I63.322 - Cerebral infarction due to thrombosis of left anterior cerebral artery (2) Atrial flutter Current Visit: Yes Status: Acute Qualifiers: Atrial flutter type: typical Qualified Code(s): I48.3 - Typical atrial flutter (3) Hyperlipidemia associated with type 2 diabetes mellitus Current Visit: Yes Status: Chronic (4) Paroxysmal atrial fibrillation Current Visit: Yes Status: Chronic (5) Obesity (BMI 30.0-34.9) Current Visit: Yes Status: Chronic - Constitutional Vitals: Temp Pulse Resp BP Pulse Ox 97.8 F 72 18 128/80 97 08/25/16 06:58 08/25/16 06:58 08/25/16 06:58 08/25/16 06:58 08/25/16 06:58 Internal Medicine: Result - Labs CBC & Chem 7: 08/25/16 05:13 08/25/16 05:13 Labs: Short CBC 08/25/16 Range/Units 05:13 WBC 9.0 (4.3-11.1) K/mcL Hgb 15.2 (12.9-16.9) g/dL Hct 45.9 (37.5-50.1) % Plt Count 161 (140-400) K/mcL Neutrophils # 5.7 (1.6-8.9) K/mcL BMP 08/25/16 05:13 Sodium 141 Potassium 4.1 Chloride 107 Carbon Dioxide 23 BUN 16 Creatinine 0.81 Glucose 170 H Calcium 9.1 Liver Function 08/25/16 Range/Units 05:13 Total Bilirubin 0.6 (0.2-1.2) mg/dL AST 12 (5-34) Units/L ALT 15 (0-55) Units/L Alkaline Phosphatase 62 (38-126) Units/L Albumin 3.2 L (3.5-5.0) g/dL - ABG Interpretation ABG results: PT/INR, D-dimer PT 18.4 Seconds (9.4-12.1) H 08/23/16 18:27 - Attending Attestation I examined this patient and my medical decision-making was reviewed with the Resident Physician on 08/24/16. I agree with the documented findings, disposition and treatment plan as described except to the extent set forth below. Mr. Shi is currently admitted for acute CVA related to atrial fibrillation. He is moderate to high risk due to potential of worsening neurologic status and cardiac issues. Mr. Shi feels good today. He has no weakness or new symptoms. He is awaiting neuro, PT/OT evals. No CP or SOB. No GI symptoms. Exam Alert. Comfortable Heart irreg Lungs no wheeze I/P 1. Acute CVA 2. Chronic atrial fib Further diagnoses and plan as above.
--- NOTE | 2016-08-24 18:08 | Neurology - Consult Note ---
Date of Encounter: 08/24/16 Time of Encounter: 15:06 Assessment and Plan (1) CVA (cerebral vascular accident) Current Visit: Yes Status: Acute Patient clinically is asymptomatic his weakness of lower extremity has been resolved now I did not notice any facial drooping needed any other focal motor or sensory deficit seems to be back to his baseline MRI of his brain was reviewed MRA did not show any evidence of intracranial stenosis of the same time did not show any critical stenosis of his carotid echocardiogram has been negative as well. Considering he was on low-dose upset her toe one option is to increase the dose to be therapeutic unfortunately there is no way to address to make sure that it is therapeutic on the other hand this possibility that it could be changed to a different anticoagulation, that could be discussed with cardiology or dependent on primary care team's decision. On the statin suggested to continue He did have some difficulty with her gait and balance are clear at the moment he seems to be stable he has already been evaluated by physical therapy will follow the recommendations Blood pressure is been stable now on the unit was elevated suggested to keep it therapeutic range From neurology standpoint patient could be discharged equally follow-up at the [facility] Discussed in detail with the patient and the family Qualifiers: CVA mechanism: thrombosis Precerebral and cerebral artery: anterior cerebral artery Laterality of affected vessel: left Qualified Code(s): I63.322 - 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 Shi is a 71 year old male with history of a-fib and DM who presents today for 1 day history of RLE weakness. According to the patient yesterday at approx 1630 he attempted to stand and felt like his leg was weak. later he went to the [facility] for eval and was then sent to our ED for evaluation. Pt states that he missed one dose of Xarelto 2 days ago. at the same time he was also taking only 10 mg a day by the time patient that admitted his symptoms has resolved and now he denies any focal motor weakness , Denies any other symptoms other than RLE weakness. according to the family he did have a slight droop on the left side of the face but patient has not noticed any difference . He denies any history of difficulty with speech any double vision or any difficulty with his upper extremity Past Med Surg Social Fam HX - Past Medical History Medical history: diabetes, hyperlipidemia Psychiatric history: no psych history - Past Surgical History Surgical History: appendectomy - Social History Smoking Status: Former smoker Smokeless Tobacco Status: No Alcohol use: none Drug use: none - Family History Mother Living Status: Brother Living Status: Father Living Status: Medications and Allergies GlipiZIDE [Glipizide] 10 mg PO BIDWM 03/14/16 [History] Metformin HCl [Glucophage] 1,000 mg PO BID 03/14/16 [History] Rivaroxaban [Xarelto] 10 mg PO DAILY 03/14/16 [History] Metoprolol XL (24 HR) Succ [Toprol Xl] 25 mg PO DAILY #30 tab.er.24h 03/18/16 [ Rx] Diltiazem HCl [Cardizem] 240 mg PO DAILY 06/17/16 [History] Allergies No Known Allergies Allergy (Verified 03/14/16 18:19) All Systems: A 10-system review of systems was performed and is negative for pertinent findings except as documented above in the HPI. Review of Systems: A 10-system review of systems was performed and is negative for pertinent findings except as documented above in the HPI. Physical Examination - Vital Signs Vital Signs: Initial Vital Signs Temp Pulse Resp BP Pulse Ox 98.7 F 68 16 139/105 99 08/23/16 10:25 08/23/16 10:25 08/23/16 10:25 08/23/16 10:25 08/23/16 10:25 - Constitutional General appearance: comfortable - Neurologic Detailed motor examination: full strength in all major muscle groups Motor examination - right side: 5/5: deltoids, biceps, triceps, wrist flexion, wrist extension, marriage therapist, hip flexors, tibialis Anterior, quadriceps, toe extension (EHL), plantarflexion Motor examination - left side: 5/5: deltoids, biceps, triceps, wrist flexion, wrist extension, hip flexors, marriage therapist, quadriceps, tibialis Anterior, toe extension (EHL), plantarflexion Mental Status Examination: awake, alert, oriented to person, oriented to place, oriented to time, follows commands appropriately, answers questions appropriately, no agnosia, no aphasia, no aproxia Cranial nerve examination: PERRL, EOMI, visual ferreira intact, corneal reflexes brisk symmetrically, sensory to face intact, mastication intact, no facial asymmetry is present, no dysarthria, hearing is intact symmetrically, soft palate elevates bilaterally upon phonation, gag reflex intact, flexes SCM and trapezius muscles symmetrically with full power, tongue protrudes midline, no atrophy or facial fasiculations present Cerebellar examination: no dysmetria, performs finger to nose and heel to banuelos symmetrically without ataxia, no gait ataxia, no truncal ataxia, no difficulty with rapid alternating movements Results - Laboratory Findings CBC and BMP: 08/24/16 04:33 08/24/16 04:33 Abnormal lab findings: Abnormal lab results PT 18.4 Seconds (9.4-12.1) H 08/23/16 18:27 Glucose 156 mg/dL (70-99) H 08/24/16 04:33 POC Glucose 127 (58-89) H 08/23/16 16:42 Hemoglobin A1c 8.0 % (-5.6) H 08/23/16 18:27 Triglycerides 269 mg/dL (< 150) H 08/23/16 18:27 Cholesterol 259 mg/dL (< 200) H 08/23/16 18:27 LDL Cholesterol, Calc 163 mg/dL (0-99) H 08/23/16 18:27 VLDL Cholesterol, Calc 54 mg/dL (< 31) H 08/23/16 18:27 Cholesterol/HDL Ratio 6.2 (0-4.9) H 08/23/16 18:27 - Diagnostic Findings Additional findings: MRI of the brain that shows an evidence of lacunar infarct in the left frontal lobe without any evidence of bleed he already had an echocardiogram that was negative and MRA of his head and neck was also reported as negative Consult Discharge Plan - Plan Instructions: Atrial Flutter (DC), Atrial Fibrillation (DC), Diabetes Mellitus Type 2 in Adults (DC), Ischemic Stroke (GEN), Self Care Measures After a Stroke (GEN) [facility]errals: [facility] [Primary Care Provider] -
[2016-08-25 06:00] LABS: Basophils # 0.1 K/mcL (0.0-0.2); Basophils % 0.6 %; Eosinophils # 0.2 K/mcL (0.0-0.6); Eosinophils % 1.8 %; Hematocrit 45.9 % (37.5-50.1); Hemoglobin 15.2 g/dL (12.9-16.9); Immature Granulocytes % 0.8 % (0-4); Lymphocytes # 2.3 K/mcL (0.6-4.6); Lymphocytes % 25.3 %; Mean Corpuscular HGB Conc 33.1 g/dL (31.6-35.5); Mean Corpuscular Volume 90.7 fL (83.0-100.0); Mean Platelet Volume 10.9 fL (9.4-12.4); Monocytes # 0.8 K/mcL (0.0-1.3); Monocytes % 8.4 %; Neutrophils # 5.7 K/mcL (1.6-8.9); Platelet Count 161 K/mcL (140-400); Red Blood Count 5.06 M/mcL (4.19-5.50); Red Cell Distribution Width 12.8 % (11.5-14.5); Segmented Neutrophils % 63.1 %
[2016-08-25] MEDS ORDERED: *HR* Rivaroxaban 10 MG TABLET PO SCH (06:00)
[2016-08-25 06:15] LABS: Alanine Aminotransferase 15 Units/L (0-55); Albumin 3.2 g/dL (3.5-5.0); Albumin/Globulin Ratio 1.1 (1.1-2.2); Alkaline Phosphatase 62 Units/L (38-126); Aspartate Amino Transferase 12 Units/L (5-34); BUN/Creatinine Ratio 20 (6-26); Bilirubin,Total 0.6 mg/dL (0.2-1.2); Blood Urea Nitrogen 16 mg/dL (8-26); Calcium 9.1 mg/dL (8.6-10.8); Carbon Dioxide 23 mEq/L (19-29); Chloride 107 mEq/L (98-109); Globulin 2.8 g/dL (2.4-3.5); Glucose 170 mg/dL (70-99); Osmolality,Calculated 297 (280-300); Potassium 4.1 mEq/L (3.5-4.5); Sodium 141 mEq/L (136-145); eGFR For African Americans > 60 (> 60); eGFR For Non-African Americans > 60 (> 60)
[2016-08-25 07:05] VITALS: BP 128/80
--- NOTE | 2016-08-25 07:54 | Discharge Summary ---
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24h Metoprolol XL (24 HR) Succ [Toprol Xl] 50 mg PO DAILY #60 tab.er.24h Rivaroxaban [Xarelto] 20 mg PO DAILY #30 tablet Home Medications: GlipiZIDE [Glipizide] 10 mg PO BIDWM 03/14/16 [History] Metformin HCl [Glucophage] 1,000 mg PO BID 03/14/16 [History] Atorvastatin [Lipitor] 40 mg PO HS #30 tablet 08/25/16 [Rx] Digoxin [Lanoxin] 0.125 mg PO DAILY #30 tablet 08/25/16 [Rx] Diltiazem CD (24hr) [Cardizem CD] 240 mg PO DAILY #30 cap.er.24h 08/25/16 [Rx] Metoprolol XL (24 HR) Succ [Toprol Xl] 50 mg PO DAILY #60 tab.er.24h 08/25/16 [ Rx] Rivaroxaban [Xarelto] 20 mg PO DAILY #30 tablet 08/25/16 [Rx] Allergies/Adverse Reactions: Allergies No Known Allergies Allergy (Verified 03/14/16 18:19) Procedures/tests Complete & Pending: Procedures Performed prior 72 hours Category Date Time Status MR angio head wo con [MR] Stat MRI 08/23/16 14:20 Completed MR angio neck wo con [MR] Stat MRI 08/23/16 14:20 Completed MR head/brain wo con [MR] Stat MRI 08/23/16 14:20 Completed EV echocardiogram Routine Y 08/24/16 18:10 Completed Date of admission: 08/23/16 14:07 [facility] care physician: [facility] Consults: 08/23/16 17:12 Consult to Occupational Therapy [CONS] Routine Comment: Evaluate, develop and implement POC Consult to Physical Therapy [CONS] Routine Comment: Evaluate, develop and implement POC 08/23/16 17:28 Consult to Neurology [CONS] Routine Consulting Provider: [facility] Reason for Consult: CVA Call Completed: No 08/23/16 18:14 Consult to [employer] [CONS] Routine Reason for SW Consult: PHYSICAL THERAPY. 08/24/16 03:12 Consult to Cardiology [CONS] Routine Comment: Consulting Provider: [facility] Reason for Consult: Atrial flutter with RVR Call Completed: Yes Discharging clinician: Tomi Clemons Anticipated date of discharge: 08/25/16 - Patient Status Disposition: Home, Self-Care Condition: Fair Functional capacity at discharge: uses cane/walker Overall status at discharge: patient is progressing back to baseline - Discharge Instructions Instructions: Metoprolol (By mouth), Diltiazem (By mouth), Digoxin (By mouth), Atorvastatin (By mouth), Rivaroxaban (By mouth), Atrial Flutter (DC), Atrial Fibrillation (DC), Diabetes Mellitus Type 2 in Adults (DC), Meal Planning with Diabetes Exchanges (GEN), Ischemic Stroke (GEN), Self Care Measures After a Stroke (GEN) Follow Up With: Sudarshan Styles MD [Partnered Physician] - (REFERRAL SENT TO [facility] , OFFICE WILL CALL YOU WITH APPOINTMENT TIME) [facility] [Primary Care Provider] - (FOLLOW UP WITH YOUR PRIMARY PHYSICAN ([facility] TEAM ) IN 3-5 DAYS AFTER DISCHARGED) Additional Instructions: recommend taking hons as prescribed. follow-up with physical therapy. Follow-up with your Primary care physician in the next 3-5 days. If you develop new facial slurred speech, trouble walking, weakness or any other concerning medical symptoms return to the emergency department for evaluation. - Diet and Activity Activity: as per physical therapy Diet: advance to your usual diet Interval History: stroke Hospital course: Mr. Shi is a 71 year old male with history of a-fib and DM was admitted on with 1 day history of RLE weakness, He underwent Lumbar spine MRI, Brain MRI, Head MRA and Neck MRA. He was found to have a posterior left frontal lobe infarct near the left MCA. His brain MRI also demonstrates old infarcts apparently unknown to the patient. He was also found to be in atrial flutter but the time did not have any chest pain, shortness of breath, or palpitations with a rate of roughly 130. Mr. Shi was admitted to the general medical floor and placed on telemetry. His heart rate stayed elevated at roughly around 130 and eventually received an IV dose of metoprolol and IV diltiazem with little response cardiology was called and consulted started digoxin loading at 0.25 mg every 6 hours 3 doses. Cardiology evaluated the patient in a TT E was performed demonstrating LVEF of 45-50% normal RV, moderate biatrial enlargement , mild MR, normal RVSP. He was recommended to complete IV loading of digoxin, continue Cardizem CD at 240 mg daily. Continues are also at an increased dose of 20 mg daily. Rate control was achieved on current regimen. He was continued on this current regimen the remainder of his hospital stay with appropriate rate control. He was seen and evaluated by physical therapy who recommended outpatient physical therapy and for him to walk with a walker. Neurology was consult and evaluated the patient, after evaluation they recommended continuing the current regimen, continue the statin and recommended follow-up at [facility]. On 08/25/2016 Mr. Shi was deemed stable for discharge home with appropriate follow-up. Discharge plan and follow-up were discussed with Mr. Shi and his who were in agreement with this plan. Prescriptions for new medications were provided at the time of discharge. - Time Spent with Patient Total time spent providing and/or coordinating discharge services: - Constitutional Vitals: Temp Pulse Resp BP Pulse Ox 97.8 F 72 18 128/80 97 08/25/16 06:58 08/25/16 06:58 08/25/16 06:58 08/25/16 06:58 08/25/16 06:58 General appearance: Present: cooperative, A&O X 3, pleasant, no acute distress - Head Head exam: Present: atraumatic, normocephalic - Eye Eye exam: Present: PERRL, conjuntiva pink, sclera anicteric Pupils: Present: PERRL - Neck Neck exam general surgery: Present: supple, trachea midline. Absent: lymphadenopathy - Respiratory Respiratory exam: Present: CTAB. Absent: accessory muscle use, rales, rhonchi, wheezes - Cardiovascular Cardiovascular exam: Present: RRR, +S1, +S2. Absent: diastolic murmur, gallop, rubs, systolic murmur - GI/Abdominal GI/Abdominal exam: Present: normal bowel sounds, soft, no peritoneal signs. Absent: distended, tenderness - Extremities Exam Extremities exam: Present: warm, radial pulses palpable and symetrical. Absent : calf tenderness, cyanotic, pedal edema - Neurological Exam Neurological exam: Present: alert, oriented X3, no focal deficits, strengths equal and symetr throughout. 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 artery (2) Atrial flutter Status: Acute Qualifiers: Atrial flutter type: typical Qualified Code(s): I48.3 - Typical atrial flutter (3) Hyperlipidemia associated with type 2 diabetes mellitus Status: Chronic (4) Paroxysmal atrial fibrillation Priority: Secondary Status: Chronic (5) Obesity (BMI 30.0-34.9) Priority: Secondary Status: Chronic (6) Diabetes mellitus Priority: Secondary Status: Chronic Qualifiers: Diabetes mellitus type: type 2 Diabetes mellitus complication status: with circulatory complication Diabetes mellitus skilled nursing insulin use: without terminal manager use Qualified Code(s): E11.51 - Type 2 diabetes mellitus with diabetic peripheral angiopathy without gangrene Procedures/tests Complete & Pending: Procedures Performed prior 72 hours Category Date Time Status MR angio head wo con [MR] Stat MRI 08/23/16 14:20 Completed MR angio neck wo con [MR] Stat MRI 08/23/16 14:20 Completed MR head/brain wo con [MR] Stat MRI 08/23/16 14:20 Completed EV echocardiogram Routine Y 08/24/16 18:10 Completed Date of admission: 08/23/16 14:07 [facility] care physician: [facility] Consults: 08/23/16 17:12 Consult to Occupational Therapy [CONS] Routine Comment: Evaluate, develop and implement POC Consult to Physical Therapy [CONS] Routine Comment: Evaluate, develop and implement POC 08/23/16 17:28 Consult to Neurology [CONS] Routine Consulting Provider: [facility] Reason for Consult: CVA Call Completed: No 08/23/16 18:14 Consult to [employer] [CONS] Routine Reason for SW Consult: PHYSICAL THERAPY. 08/24/16 03:12 Consult to Cardiology [CONS] Routine Comment: Consulting Provider: [facility] Reason for Consult: Atrial flutter with RVR Call Completed: Yes Hospital course: Mr. Shi is a 71 year old male - Time Spent with Patient Total time spent providing and/or coordinating discharge services: 28min - Constitutional Vitals: Temp Pulse Resp BP Pulse Ox 97.8 F 72 18 128/80 97 08/25/16 06:58 08/25/16 06:58 08/25/16 06:58 08/25/16 06:58 08/25/16 06:58 - Attending Attestation I examined this patient and my medical decision-making was reviewed with the Resident Physician on 08/25/16. I agree with the documented findings, disposition and treatment plan as described except to the extent set forth below. Mr. Shi is feeling well today. He has had no further symptoms. He is currently on Xarelto. His heartrate and BP have been good and he has been afebrile. Exam Alert. Comfortable Heart irreg No wheeze Plan Pt medically stable for discharge today. to speak with cardiology for further questions. D/C home Follow up with cardiology as arranged.
[2016-08-25] MEDS: Insulin LISPRO 300 UNITS/3 ML VIAL SQ SCH ×2 (08:17→08:18)
[2016-08-25] MEDS: Aspirin 325 MG TABLET PO SCH (08:17)
[2016-08-25] MEDS ORDERED: Metoprolol XL (24 HR) Succ 25 MG TAB.ER.24H PO SCH (09:00)
[2016-08-25] MEDS ORDERED: *HR* Digoxin 0.125 MG TABLET PO SCH (09:45)
[2016-08-25] MEDS: Diltiazem CD (24hr) 240 MG CAPSULE PO SCH (10:35)
--- NOTE | 2016-08-25 11:48 | Cardiology Progress Note ---
Date of Encounter: 08/25/16 Time of Encounter: 11:46 Assessment and Plan (1) Atrial fibrillation with RVR Current Visit: No Status: Acute Atrial flutter with RVR. Heart rate 130s on admission. Average heart rate over 24 hours was 76 beats per minutes. IV digoxin load given on . Start oral digoxin. Continue Cardizem 240 mg daily and Toprol-XL 50 mg. Recommended Xarelto doses 20 mg daily. Patient was on a low dose xarelto started at [facility]. Recently instructed to increase to 20 mg daily. reports patient had 1-2 doses of the 20 mg prior to admission. Discuss changing Xarelto too eliquis as recommended to consider by neurology. Patient's prefers to continue Xarelto. Patient did not fail Xarelto he was on a lower dose than recommended. TTE EF 45-50%, low normal to mildly decreased LV function. Moderately dilated left atrium and right atrium. There is mild mitral regurgitation. EF unchanged from 2016. (2) CVA (cerebral vascular accident) Current Visit: Yes Status: Acute Acute infarct in the posterior L frontal lobe near the L MCA. Neurology recommendations appreciated. Patient is going home with physical therapy. Right lower extremity weakness has improved. 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 All questions were answered. Thank you for involving us in the care of your patient. Please call with any questions. Subjective Principal diagnosis: atrial fibrillation with RVR Interval history: No new complaints overnight. New medications discussed with patient and voiced understanding. Objective Vital Signs Temp Pulse Resp BP Pulse Ox 08/25/16 06:58 97.8 F 72 18 128/80 97 08/25/16 04:14 98.2 F 93 15 113/76 97 08/25/16 04:00 70 113/76 08/25/16 00:00 71 132/78 08/24/16 20:13 97 08/24/16 20:04 98.2 F 76 17 112/75 97 08/24/16 20:03 76 112/75 08/24/16 19:06 97 01/28/17 18:16 70 08/24/16 15:02 98.1 F 73 15 118/76 08/24/16 12:31 113 131/81 Intake and Output 08/24/16 08/25/16 08/25/16 23:59 07:59 15:59 Intake Total 360 / 360 360 / 360 Balance 360 / 360 360 / 360 Intake: Oral 360 / 360 360 / 360 Other: Meal Dinner Breakfast Percent of Meal Consumed 100% 100% Blood Glucose* 147 141 General: Conversant, No Apparent Distress, Other (Patient appears agitated at times.) HEENT: Atraumatic, Normocephaly, Mucus Membranes Moist Neck: No JVD, Normal carotid pulses Cardiac: Other (Irregularly irregular, rate controlled atrial fibrillation on telemetry.) Lungs: Other (Respirations easy, rhonchi noted in the left lower lobe that moves with cough.) Neuro: Alert and responsive, No focal deficits noted Abdomen: Soft, Non-Tender Skin: No rashes noted on visualized skin Musculoskeletal: No Chest Wall Tenderness Extremities: No Clubbing, No Cyanosis, No Edema, Normal Pulses Results 08/25/16 05:13 08/25/16 05:13 Lab Results 08/25/16 08/25/16 05:13 05:13 WBC 9.0 Hgb 15.2 Hct 45.9 Plt Count 161 Sodium 141 Potassium 4.1 Chloride 107 Carbon Dioxide 23 BUN 16 Creatinine 0.81 Glucose 170 H Calcium 9.1 Total Bilirubin 0.6 AST 12 ALT 15 Alkaline Phosphatase 62 - Imaging and Cardiology Echo: report reviewed - EKG Interpretation EKG results cardiology: other (24 hour telemetry shows average heart rate is 76 bpm atrial fibrillation.) - VTE Documentation of Mechanical Device: Graduated compression elastic hosiery Consult Discharge Plan - Plan Instructions: Atrial Flutter (DC), Atrial Fibrillation (DC), Diabetes Mellitus Type 2 in Adults (DC), Ischemic Stroke (GEN), Self Care Measures After a Stroke (GEN) Additional Instructions: recommend taking hons as prescribed. follow-up with physical therapy. Follow-up with your Primary care physician in the next 3-5 days. If you develop new facial slurred speech, trouble walking, weakness or any other concerning medical symptoms return to the emergency department for evaluation. [facility]errals: [facility] [Primary Care Provider] - Prescriptions: Atorvastatin [Lipitor] 40 mg PO HS #30 tablet Digoxin [Lanoxin] 0.125 mg PO DAILY #30 tablet Diltiazem CD (24hr) [Cardizem CD] 240 mg PO DAILY #30 cap.er.24h Metoprolol XL (24 HR) Succ [Toprol Xl] 50 mg PO DAILY #60 tab.er.24h Rivaroxaban [Xarelto] 20 mg PO DAILY #30 tablet
[2016-08-25] MEDS ORDERED: APIXABAN 5 MG TABLET PO SCH (21:00)
--- NOTE | 2016-08-25 21:47 | Electrocardiograph Report ---
[facility] Test Date: 2016-08-23 Pat Name: [facility] Department: 104 Room: 2NE16 Gender: M Boarder Machine: SPENSER : [id number] Requested By: Hossein Olson Order Number: [id number] Reading MD: Sudarshan Styles MD Measurements Intervals [place] Rate: 73 P: ID: 0 QRS: -13 QRSD: 140 T: -6 QT: 437 QTc: 463 Interpretive Statements ATRIAL FLUTTER RIGHT BUNDLE BRANCH BLOCK Electronically Signed On 08-25-16 21:45:54 EST by Sudarshan Styles MD
--- NOTE | 2016-08-26 11:19 | Electrocardiograph Report ---
[facility] Test Date: 2016-08-24 Pat Name: [facility] Department: 111 Room: 2NE16 Gender: M [employer] Agent: [id number] Requested By: Jeremy Cuevas Order Number: [id number] Reading MD: Earl Higgins MD Measurements Intervals [place] Rate: 132 P: MN: 0 QRS: -11 QRSD: 143 T: -37 QT: 374 QTc: 452 Interpretive Statements ATRIAL FLUTTER WITH RAPID VENTRICULAR RESPONSE RIGHT BUNDLE BRANCH BLOCK INFERIOR NM, AGE UNDETERMINED Electronically Signed On 08-26-16 11:18:38 EST by Earl iHggins MD
== END 2016-08-25 14:22 | disposition home or self-care (01) | DRG 65 ==
LOC: EMEROO 10:21 → 2NENU 14:07
PROVIDERS: ADMIT Internal Medicine; ATTEND Internal Medicine